=== PATIENT | male | born 1960 | race Caucasian/White ===

== ENCOUNTER → 2019-03-20 | Outpatient (CLI) | payer OTHER ==
[~2019-03-20] MED LIST: ALBUTEROL SULFATE 2.5 MG/3 ML NEBU. NEB ONE
--- NOTE | 2019-03-20 13:20 | RAD ---
EXAM: Lumbar spine, 3 views. HISTORY: Pain. COMPARISON: None. FINDINGS: 3 views of the lumbar spine are obtained. There is no listhesis. The vertebral bodies are normal in height. There is mild endplate remodeling at multiple levels. There are metallic clips overlying the left upper quadrant. There is suspected cholelithiasis. IMPRESSION: No acute osseous finding. Electronically signed by: America Joy MD (03/20/2019 1:17 PM) [place] [id number]
--- NOTE | 2019-03-20 17:06 | RAD ---
CHEST PA LATERAL History: Difficulty breathing Comparison: None. Findings: Sternal wires are present. Surgical clips at the left lung basilar region noted. Right axilla surgical clips noted. Left thoracotomy noted. The cardiomediastinal silhouette is normal. Pulmonary vasculature is normal. The lungs are clear. No pleural effusion or pneumothorax is seen. Pulmonary hyperinflation is present. There is no acute bone abnormality. IMPRESSION: No acute cardiopulmonary process. COPD. Electronically signed by: Zay Mcdaniels MD (03/20/2019 5:03 PM) [facility]
== END | disposition home or self-care (01) ==
LOC: PF 07:36
PROVIDERS: ATTEND Family Medicine
DX: J44.9 Chronic obstructive pulmonary disease, unspecified (principal); R06.02 Shortness of breath; M54.5 Low back pain
CPT/HCPCS: 71046; 72100; 94060; 94640; J7613